=== PATIENT | male | born 1950 | race Caucasian/White ===

== ENCOUNTER 2020-08-08 07:16 | Day surgery (SDC) | payer MEDICARE ==
[~2020-08-08] VITALS: Ht 182.9 cm; Wt 73.0 kg
[2020-08-08] MEDS ORDERED: CEFAZOLIN 1,000 MG IV ONE (08:00)
[2020-08-08] MEDS ORDERED: SODIUM CHLORIDE 0.9% 1,000 ML IV SCH (08:00)
[2020-08-08 08:07] VITALS: BP 96/61
[2020-08-08] MEDS ORDERED: CEFAZOLIN PMX 1GM/50ML 50 ML ONE (08:09)
[2020-08-08] MEDS ORDERED: LISI-170 PO (08:22)
[2020-08-08] MEDS ORDERED: TRAZ50TA66 PO (08:22)
[2020-08-08] MEDS ORDERED: ALLO100T30 PO (08:22)
[2020-08-08] MEDS ORDERED: dexamethasone (08:22)
[2020-08-08] MEDS ORDERED: ONDA4TAB7 PO (08:22)
[2020-08-08] MEDS ORDERED: morphine (08:22)
[2020-08-08] MEDS ORDERED: FENTANYL PF 100 MCG/2ML ONE (11:29)
[2020-08-08] MEDS ORDERED: FLUMAZENIL 0.1 MG/1 ML, 5ML ONE (11:29)
[2020-08-08] MEDS ORDERED: NALOXONE 1 MG/ML, 2ML ONE (11:29)
[2020-08-08] MEDS ORDERED: MIDAZOLAM 1 MG/ML, 5ML ONE (11:29)
[2020-08-08] MEDS ORDERED: LIDOCAINE-MPF 1%, 5ML ONE (11:32)
[2020-08-08] MEDS ORDERED: LIDOCAINE 1%, 20ML ONE (11:33)
== END 2020-08-08 13:10 | disposition home or self-care (01) ==
LOC: RAD 07:16
PROVIDERS: ATTEND Internal Medicine
DX: C06.9 Malignant neoplasm of mouth, unspecified (principal); C79.51 Secondary malignant neoplasm of bone; I10 Essential (primary) hypertension; Z79.899 Other long term (current) drug therapy; Z85.46 Personal history of malignant neoplasm of prostate; Z80.0 Family history of malignant neoplasm of digestive organs
CPT/HCPCS: 36561; 76937; 77001; 99156; 99157; C1788; J0690; J1642; J2250; J3010; J7030; J2310